=== PATIENT | male | born 1935 | race Caucasian/White ===

== ENCOUNTER → 2017-09-19 | Outpatient (CLI) | payer MEDICARE | END | disposition home or self-care (01) | LOC: RAD 13:41 | PROVIDERS: ATTEND Internal Medicine | DX: N43.2 Other hydrocele (principal); L72.0 Epidermal cyst | CPT/HCPCS: 76870; 93975 ==

== ENCOUNTER → 2017-09-25 | Outpatient (CLI) | payer MEDICARE | END | disposition home or self-care (01) | LOC: CFH 06:51 | PROVIDERS: ATTEND Internal Medicine | DX: R51 Headache (principal); J32.0 Chronic maxillary sinusitis | CPT/HCPCS: 70551 ==

== ENCOUNTER 2020-03-31 11:38 | Emergency (ER) | payer MEDICARE ==
[~2020-03-31] VITALS: Ht 177.8 cm; Wt 78.5 kg
[2020-03-31 11:52] VITALS: BP 134/96
[2020-03-31] MEDS ORDERED: TRANEXAMIC ACID 100 MG/ML, 10ML ONE (12:20)
[2020-03-31] MEDS ORDERED: TRANEXAMIC ACID 100 MG/ML, 10ML TP ONE (12:30)
[2020-03-31] MEDS ORDERED: XARELTO (13:52)
== END 2020-03-31 14:20 | disposition home or self-care (01) ==
LOC: ED 12:09
DX: R04.0 Epistaxis (principal)
CPT/HCPCS: 99282

== ENCOUNTER 2020-04-18 06:23 | Emergency (ER) | payer MEDICARE ==
[~2020-04-18] VITALS: Ht 177.8 cm; Wt 76.5 kg
[~2020-04-18 06:23] MED LIST: XARELTO
[2020-04-18] MEDS ORDERED: LIDOCAINE 1%-EPI 1:100K, 20ML ONE (06:35)
--- NOTE | 2020-04-18 06:36 | NUR ---
PATIENT CAME IN FOR NOSE BLEED FOR FEW HOURS, PATIENT ON XARALTO. ERP AT BEDSIDE. ERP GIVEN MEDICATION, AND ATTEMPTING TO STOP NOSE BLEED WITH BALLON,
--- NOTE | 2020-04-18 06:49 | NUR ---
BALLON PLACED IN PATIENTS RIGHT NOSTRIL BY ERP, BLEEDING STOPPED AT THIS MOMENT, WILL CONTINUE TO MONITOR
--- NOTE | 2020-04-18 06:58 | NUR ---
REPORT GIVEN TO CYRUS LAGUERRE
--- NOTE | 2020-04-18 07:00 | NUR ---
assumed care of pt. report from Yamilex BRIDGES. pt here for epistaxis. rhino rocket has been placed and bleeding controlled at thid time. pt sitting up on gurney in no apparent distress. family at bedside
[2020-04-18 07:40] VITALS: BP 112/82
== END 2020-04-18 07:44 | disposition home or self-care (01) ==
LOC: ED 06:54
DX: R04.0 Epistaxis (principal)
CPT/HCPCS: 30901; 99284

== ENCOUNTER 2020-04-18 20:52 | Emergency (ER) | payer MEDICARE ==
[~2020-04-18] VITALS: Ht 177.8 cm; Wt 77.1 kg
[2020-04-18 20:55] VITALS: BP 148/114
[2020-04-18] MEDS ORDERED: LIDOCAINE 1%-EPI 1:100K, 20ML ONE ×2 (21:44→21:56)
[2020-04-18] MEDS ORDERED: OXYMETAZOLINE NASAL SPRAY 0.05%,30ML ONE ×2 (21:44→21:56)
--- NOTE | 2020-04-18 21:46 | NUR ---
pt from triage with c/o had rhinlevi calderon placed this am and fluid/ blood coming from right nare, scant amt of clear fluid coming from right nare
[2020-04-18] MEDS ORDERED: OXYMETAZOLINE NASAL SPRAY 0.05%, 15ML NAS ONE (22:00)
[2020-04-18] MEDS ORDERED: LIDOCAINE 1%-EPI 1:100K, 20ML INFIL ONE (22:00)
--- NOTE | 2020-04-18 22:37 | NUR ---
pt in nad at this time sitting in chair
== END 2020-04-18 22:48 | disposition home or self-care (01) ==
LOC: ED 22:25
DX: R04.0 Epistaxis (principal); R51 Headache; I48.91 Unspecified atrial fibrillation
CPT/HCPCS: 99282